=== PATIENT | male | born 1980 | race Caucasian/White ===

== ENCOUNTER → 2018-02-01 | Day surgery (SDC) | payer OTHER ==
[~2018-02-01] MED LIST: ATENOLOL50 MG PO; BUPIVACAINE 0.25% 30ML SDV INJ ONE; DEXAMETHASONE SOD PHOS INJ 4 MG/ML VIAL ONE; FENTANYL CITRATE/PF 100MCG/2 ML INJ ONE; KETOROLAC TROMETHAMINE 30 MG/ML VIAL ONE; LEVOFLOXACIN 500MG/D5W 100ML 100 ML IV ONE; LIDOCAINE HCL 2% LOCAL INJ 5 ML SDV VIAL INJ ONE; MIDAZOLAM HCL 2 MG/2 ML VIAL ONE; NEXIUM40 MG PO; ONDANSETRON HCL INJ 2 MG/ML VIAL ONE; PROPOFOL IV EMULSION 10 MG/ML 20 ML VIAL ONE; SEVOFLURANE INHAL SOLN 250 ML PEN BTL ONE
--- NOTE | 2018-02-02 13:38 | Operative Report ---
DATE OF PROCEDURE: February 01, 2018 PREOPERATIVE DIAGNOSIS: Desire for permanent sterilization. POSTOPERATIVE DIAGNOSIS: Desire for permanent sterilization. PROCEDURE PERFORMED: Bilateral segmental vasectomy. ANESTHESIA: General anesthesia. ESTIMATED BLOOD LOSS: Minimal. INDICATIONS: Mr. Pasquale Beth is a 37-year-old gentleman who has 2 children and is certain he wants no more. He now presents for management of this problem. DETAILS OF PROCEDURE: The patient brought to the operating room, placed in supine position. After initiation of general anesthesia, was prepped and draped in the usual sterile fashion. The right vasal segment was palpable through the skin on the right hemiscrotum and was incised right over this. The vasal segment was then dissected from the surrounding cord structures and clipped superiorly and inferiorly and approximately 1 cm section was removed between the 2 clips. The clipped edges were then fulgurated using the electrocautery device. The skin was reapproximated and closed using a [id number] chromic suture. A similar procedure was performed on the contralateral side without incident. Again the vasal segment was dissected from the surrounding cord structures, clipped superiorly and anteriorly and the section removed between the clips. The clipped edges were then fulgurated using electrocautery device. A skin stitch was placed using 3-0 chromic suture. Wounds were then cleaned and dried and covered with Telfa fluffs then placed in a scrotal support. Anesthesia was reversed and patient was transferred to a bed and taken to the postanesthesia care unit in good condition. Of note, the needle and instrument count were correct at the conclusion of the case. Job#: [id number]
== END | disposition home or self-care (01) ==
LOC: OR 09:01
PROVIDERS: ATTEND Urology
DX: Z30.2 Encounter for sterilization (principal); I10 Essential (primary) hypertension; Z88.0 Allergy status to penicillin; Z01.810 Encounter for preprocedural cardiovascular examination; Z68.30 Body mass index [BMI] 30.0-30.9, adult; Z98.84 Bariatric surgery status
CPT/HCPCS: 55250; 88302; 93005; J1100; J1885; J1956; J2001; J2250; J2405